=== PATIENT | female | born 1935 | race Caucasian/White ===

== ENCOUNTER → 2016-06-06 | Outpatient (CLI) | payer MEDICARE ==
[2016-06-06 09:34] LABS: ALKALINE PHOSPHATASE 117 U/L (45-117); BILIRUBIN, TOTAL 0.6 mg/dl (0.2-1.0); BUN 18 mg/dl (7-24); CARBON DIOXIDE 31 mmol/L (21-32); CHLORIDE 104 mmol/L (98-107); CHOLESTEROL 203 mg/dL (<200); CPK 91 U/L (26-192); EST GLOM FILT AFRICAN AMERICAN > 60 ml/min; GLUCOSE 112 mg/dL (65-99); HDL CHOLESTEROL 52 mg/dl (40-60); LDL CHOLESTEROL 109 mg/dL (9-159); POTASSIUM 4.1 mmol/L (3.5-5.1); SGOT/AST 66 IU/L (3-35); SGPT/ALT 71 U/L (12-78); SODIUM 145 mmol/L (136-145); TOTAL PROTEIN 8.2 gm/dL (6.4-8.2); TRIGLYCERIDES 211 mg/dl (<150); VLDL CHOLESTEROL 42 mg/dL (6-40)
== END | disposition home or self-care (01) ==
LOC: LAB 08:41
PROVIDERS: Family Medicine
DX: E78.00 Pure hypercholesterolemia, unspecified (principal); E55.9 Vitamin D deficiency, unspecified; I48.91 Unspecified atrial fibrillation

== ENCOUNTER → 2016-12-09 | Outpatient (CLI) | payer MEDICARE | END | disposition home or self-care (01) | LOC: RAD 11:30 | DX: M81.0 Age-related osteoporosis without current pathological fracture (principal) ==

== ENCOUNTER 2016-12-30 12:35 | Inpatient (IN) | payer MEDICARE ==
[~2016-12-30] VITALS: Ht 162.5 cm; Wt 71.4 kg
--- NOTE | ~2016-12-30 | WRIGHTHP ---
[place], [place] PATIENT HISTORY AND PHYSICAL EXAM NAME: ALESIA ZAMORA [facility] #: [id number] UNIT #: [id number] ROOM: [place] [address] DOCTOR: FGIUEROA ANNE MD BIRTHDATE: [birth year] DOS: 12/30/2016 HISTORY OF PRESENT ILLNESS: The patient is 81 years old. The patient is not known to me. This patient lives at home with her , was brought to Dr. Rodriguez's office by her brother because the patient appeared to be confused and that her lips were blue. Apparently, she was not acting right, so Dr. Rodriguez saw her in the office and thought she was hypoxic and sent her to the Emergency Room. This morning, the patient is pleasantly confused, does not remember her name, her 's name or where she lives. She does not remember what happened before she was admitted and she has a very moist sounding cough, and does not remember how long she has had it. PAST MEDICAL HISTORY: Significant for: 1. Chronic atrial fibrillation, history of pacemaker placement. 2. Long-term use of anticoagulants. 3. Benign hypertension. No other history is available. No family members around. MEDICATIONS: Allopurinol 100 daily, atorvastatin 10 daily, Lasix 20 daily, gabapentin 100 b.i.d., levothyroxine 50 mcg daily, metoprolol 50 daily, ReQuip 2 mg at bedtime, warfarin 5 mg daily. SOCIAL HISTORY: She does not smoke, does not use any alcohol. Lives at home with her who also suffers from dementia. She does not have any children. PHYSICAL EXAMINATION: VITAL SIGNS: Graphic trend shows a pressure 110/45, pulse of 70, respirations 14, temperature 98.6. LUNGS: Diminished breath sounds. No wheezes, rales are heard this morning. HEART: Irregular, heart rate in the low 70s. ABDOMEN: Obese, soft, nontender. EXTREMITIES: Without any edema. LABORATORY DATA: Shows WBC count of 6.2, hemoglobin 10.5, hematocrit 34.9. BMP: Glucose 122, BUN 17, creatinine 1.1. Electrolytes were normal except for a potassium of 3.1. Troponin was elevated. CT of the chest shows atelectasis with possible pneumonia on superimposed pneumonia with mild congestive heart failure. ASSESSMENT AND PLAN: 1. Moist sounding cough with a low-grade fever on admission with pneumonia on a CT of the chest. The patient is placed on multiple IV antibiotics. Long cultures were done. 2. Elevated troponin. Troponin continues to go up. It could be related to underlying FL versus demand ischemia. Cardiology consultations obtained. Echocardiogram has been ordered. 3. Hypokalemia. Supplementation is ordered. [place], [place] PATIENT HISTORY AND PHYSICAL EXAM [facility] #[facility] [id number] UNIT #: [id number] ROOM: [place] [address] DOCTOR: FIGUEROA ANNE MD BIRTHDATE: [birth year] 4. Chronic atrial fibrillation, on Coumadin. Protime was therapeutic, but I do not think this patient is an ideal candidate for Coumadin because of her dementia and high risk for fall. We will wait until Cardiology sees her to decide on that. FIGUEROA ANNE MD CM:HISPHYS:PATIENT HISTORY AND PHYSICAL EXAMINATION 5 2 FIGUEROA ANNE MD 12/31/16812 interface
--- NOTE | ~2016-12-30 | PR ---
[place], [place] PROGRESS NOTE NAME: ALESIA ZAMORA [facility] #: [id number] UNIT #: [id number] ROOM: [place] [address] DOCTOR: PATRICIA HERMOSILLO MD BIRTHDATE: [birth year] DOS: 01/02/2017 SUBJECTIVE: The patient is awake, alert, not providing much history. PHYSICAL EXAMINATION: VITAL SIGNS: Blood pressure 131/56, heart rate 70 beats per minute, breathing 17 times per minute, temperature 98 degrees Fahrenheit. GENERAL APPEARANCE: Generalized weakness. HEENT AND NECK: Exam within normal limits. CARDIOVASCULAR SYSTEM: Heart rate is regular in rate and rhythm. S1 and S2 normally audible. LUNGS: Clear to auscultation. ABDOMEN: Soft, nontender. No obvious organomegaly. Bowel sounds are present. EXTREMITIES: Without significant cyanosis or edema. IMPRESSION: 1. The patient with small lingular pneumonia and possible 8-mm lung nodule in the left lower lung. The patient is being treated with antibiotics and I will get a Pulmonary consult. 2. Hypokalemia. Potassium level of 3.2. I will give her extra potassium supplements and repeat potassium levels in the morning. 3. The patient with episode of ventricular tachycardia and elevated troponin level. Dr. Velasquez has consulted high school football coach, Dr. Arroyo to follow and manage. 4. Chronic atrial fibrillation. The patient on Coumadin. The patient now put on apixaban for anticoagulation. 5. Hyperlipidemia, treated with Lipitor. PATRICIA HERMOSILLO MD CM:PNTRANS [id number] PATRICIA HERMOSILLO MD 01/03/17 0019 interface
--- NOTE | ~2016-12-30 | CON ---
[place], [place] REPORT OF CONSULTATION NAME: ALESIA ZAMORA [facility] #: [id number] UNIT #: [id number] ROOM: [place] [address] DOCTOR: CLINT CHIU MD BIRTHDATE: [birth year] DOS: HISTORY OF PRESENT ILLNESS: The patient is known to me. An 81-year-old female with a history of permanent pacemaker. The patient is Dr. Rodriguez's patient. The patient came and saw Dr. Rodriguez and was found to be hypoxic in the Emergency Room. The patient was admitted with a diagnosis of possible pneumonia. The patient has history of chronic atrial fibrillation, permanent pacemaker and long-term use of anticoagulation. The patient has intermittent confusion. The patient is being treated for diastolic heart failure versus pneumonia. She does not look to be in acute distress. The patient examined in the Intensive Care Unit. No chest discomfort. No acute EKG changes suggesting of myocardial injury or infarction. PAST MEDICAL HISTORY: Hypertension, persistent atrial fibrillation, permanent pacemaker, and mcfp use of anticoagulation. MEDICATIONS: Atorvastatin, Lasix, gabapentin, levothyroxine, metoprolol. SOCIAL HISTORY: Does not smoke. Denies any alcohol abuse. REVIEW OF SYSTEMS: CONSTITUTIONAL: No fever, no chills. HEENT: No visual disturbances or hearing problems. CARDIOVASCULAR: As described in HPI. GASTROINTESTINAL: No nausea, no vomiting. GENITOURINARY: No dysuria, hematuria. NEUROLOGIC: Intermittent confusion. No syncope. PHYSICAL EXAMINATION: GENERAL: The patient right now knows her name and place. Does not look to be in acute distress. HEENT: Unremarkable. NECK: Supple, no JVD. LUNGS: Diminished breath sounds. HEART: Sounds are regular and paced. EXTREMITIES: Intact pulses. No edema. NEUROLOGICAL: Appears to be stable. LABORATORY DATA: Shows hemoglobin 10.5, hematocrit 34.9, potassium 3.1, BUN 17, creatinine is 1.0. INR is 2.0. CT of the chest showed nodular density in the lateral aspect of left lower lobe, uncertain mild pulmonary edema. Echocardiogram showed an excellent ejection fraction, no valvular abnormalities, mild to moderate tricuspid regurgitation. IMPRESSION: The patient admitted with respiratory insufficiency, probable diastolic, persistent atrial fibrillation. Mildly elevated troponin, probably type 2 demand as the ejection fraction is well preserved. RECOMMENDATIONS: Continue the anticoagulation as ordered. Monitor the blood pressure and heart rate closely. Mental status is improving. Gentle diuretics [facility] [place], [place] REPORT OF CONSULTATION NAME: ALESIA ZAMORA UNIT #: [id number] ROOM: [place] [address] DOCTOR: CLINT CHIU MD BIRTHDATE: [birth year] as ordered. Continue antibiotics, lipid lowering agents and beta blockers. Interrogate the pacemaker and we will closely follow up. CLINT CHIU MD CM:CONSTR:REPORT OF CONSULTATION 0631 01/02/17 2014 interface
--- NOTE | ~2016-12-30 | DS ---
[place], [place] DISCHARGE SUMMARY NAME: ALESIA ZAMORA UNIT #: [id number] ROOM: [place] [address] DOCTOR: PATRICIA HERMOSILLO MD BIRTHDATE: [birth year] DOS: 01/03/2017 DISCHARGE DIAGNOSES: 1. The patient with small lingular pneumonia and possible 8 mm lung nodule, for which she needs to follow up with Dr. Miguel, the harbor engineer. 2. Hypokalemia, treated with extra potassium supplements. 3. Episode of ventricular tachycardia, evaluated by layout worker, Dr. Arroyo and there was some elevation of troponin level. 4. Chronic atrial fibrillation. The patient anticoagulated with apixaban. 5. Mixed hyperlipidemia. The patient is on Lipitor. HOSPITAL COURSE: 1. The patient was admitted by Dr. Velasquez when she was brought over from Dr. Rodriguez's office for being confused, lips appeared blue and she was not acting right and she was hypoxemic. Dr. Velasquez admitted the patient for exacerbation of COPD and lingular pneumonia. The patient was treated with antibiotics and she appears to have achieved maximum benefit from this admission and is being transferred to nursing facility for continued antibiotics and treatment. 2. Minimal elevation of troponin I level and also an episode of ventricular tachycardia, evaluated by layout worker, Dr. Arroyo and management according to his recommendations. The patient was started on Coreg by Dr. Arroyo. 3. Hypokalemia, treated with extra potassium supplements, potassium levels have normalized. 4. Chronic atrial fibrillation. The patient anticoagulated with apixaban. LABORATORY DATA: Normal serum electrolytes. No leukocytosis. Hemoglobin 11, normal platelets. DISCHARGE MANAGEMENT: Potassium chloride 10 mEq daily, furosemide 40 mg a day, Medrol Dosepak as directed, DuoNeb q.i.d., apixaban 5 mg b.i.d., levothyroxine 50 mcg daily, Lipitor 10 mg a day, Coreg 3.125 mg b.i.d., Levaquin 750 mg every other day orally for 5 doses, then to be stopped. Repeat basic metabolic profile in 1 week. [place], [place] DISCHARGE SUMMARY NAME: ALESIA ZAMORA UNIT #: [id number] ROOM: ICCU-11 DOCTOR: PATRICIA HERMOSILLO MD BIRTHDATE: [birth year] PATRICIA HERMOSILLO MD CM:IRAM [id number] PATRICIA HERMOSILLO MD 01/03/17 2232 interface
[2016-12-30 12:41] VITALS: BP 180/110
[2016-12-30 13:16] VITALS: BP 138/60
[2016-12-30 13:40] LABS: BASO % 0.6 % (0.0-1.0); EOS % 0.1 % (1.0-4.0); HEMATOCRIT 37.5 % (37.0-47.0); HEMOGLOBIN 11.7 g/dl (12.0-16.0); LYMPH # 0.8 10*3/uL (1.3-4.4); LYMPH % 10.5 % (27.0-41.0); MEAN CELL VOLUME 96.4 fl (81.0-99.0); MEAN CORPUSCULAR HGB 30.1 pg (27.0-31.0); MEAN CORPUSCULAR HGB CONC 31.2 g/dl (33.0-37.0); MEAN PLATELET VOLUME 10.5 fl (9.6-12.3); MONO # 1.1 10*3/uL (0.1-1.0); MONO % 15.7 % (3.0-9.0); NEUT # 5.3 10*3/uL (2.3-7.9); NEUT % 72.8 % (47.0-73.0); PLATELET COUNT AUTOMATED 150 10*3/uL (130-400); RED BLOOD COUNT 3.89 10*6/uL (4.10-5.10); RED CELL DISTRI WIDTH 15.6 % (0-14.5); WHITE BLOOD COUNT 7.2 10*3/uL (4.8-10.8)
[2016-12-30 13:51] LABS: ACT PARTIAL THROMBO TIME 26.7 SECONDS (20.8-31.5)
[2016-12-30 14:01] LABS: ALBUMIN 3.4 gm/dl (3.1-4.5); ALKALINE PHOSPHATASE 72 U/L (45-117); BUN 18 mg/dl (7-24); CHLORIDE 105 mmol/L (98-107); CPK 134 U/L (26-192); CREATININE 1.02 mg/dL (0.55-1.02); MAGNESIUM 2.2 mg/dL (1.5-2.1); POTASSIUM 3.2 mmol/L (3.5-5.1); SGOT/AST 29 IU/L (3-35); SGPT/ALT 19 U/L (12-78); SODIUM 142 mmol/L (136-145); TOTAL PROTEIN 7.1 gm/dL (6.4-8.2)
[2016-12-30 14:04] LABS: TROPONIN I 0.046 ng/ml (<0.045)
[2016-12-30 14:33] LABS: BILIRUBIN 1+ (NEGATIVE); BLOOD TRACE-INTACT (NEGATIVE); CLARITY SL CLOUDY (CLEAR); COLOR YELLOW (YELLOW); GLUCOSE NEGATIVE (NEGATIVE); KETONE TRACE (NEGATIVE); LEUKO ESTERASE NEGATIVE (NEGATIVE); NITRITE NEGATIVE (NEGATIVE); PH 5.5 (5.0-9.0); SPECIFIC GRAVITY >= 1.030 (1.005-1.030)
--- NOTE | 2016-12-30 14:42 | NUR ---
STRAIGHT CATH FOR 50CC DARK ABDIEL URINE. TOLERATED WELL.
[2016-12-30 14:48] LABS: MUCOUS 1+; WBC 0-2 wbc/hpf (0-5)
[2016-12-30 15:43] VITALS: BP 195/81
--- NOTE | 2016-12-30 16:00 | NUR ---
PER HUBERT WHEATLEY RN REPORT TAKEN FROM THOMAS RAMIREZ RN. PT CYANOTIC WITH RESPS 32, BP 195/81. DR ANNE INFORMED. NO NEW ORDERS.
--- NOTE | 2016-12-30 16:20 | NUR ---
PT ARRIVED TO FLOOR.
--- NOTE | 2016-12-30 16:23 | NUR ---
MAINTENANCE MACHINE REPAIRER CALLED AND STATED PT WAS IN VTACH. UPON ENTERING THE ROOM PTS LIPS WERE CYANOTIC, RESPS 34, AND PT VERY CONFUSED. RAPID RESPONSE INITIATED.
--- NOTE | 2016-12-30 16:28 | NUR ---
CALLED DR ANNE TO INFORM HER THAT WE HAD TO CALL A RAPID RESPONSE ON PT R/T 3 RUNS OF VTACH, CYANOSIS, ELEVATED BP AND LABORED BREATHING. PER HOSPITALISTS PT IS BEING TRANSFERRED TO THE ICU.
[2016-12-30 16:42] VITALS: BP 174/73
--- NOTE | 2016-12-30 16:42 | NUR ---
A 81, admitted to ICCU, under the services of FIGUEROA Garcia MD with a diagnosis of CHF. Chief complaint is SHORTNESS OF BREATH. Patient arrived via wheel chair from ER. Monitor applied. Initial assessment completed. Vital signs taken and recorded. FIGUEROA GARCIA MD notified of admission to the unit. Orders received. See assessment for past medical history, medications and allergies. Patient and/or family oriented to unit. [facility] ICCU visitation policy reviewed. Clothing/patient valuable form completed. MITCH MCGRATH
--- NOTE | 2016-12-30 16:42 | NUR ---
TRANSFERRED TO ICCU AFTER TRAPID RESPONSE ON 5E, RECTAL TEMP 102.1, MARSHALL PLACED, PT MOANING AND IS VERY RESTLESS
[2016-12-30 16:58] LABS: ABG BASE EXCESS 2.3 mmol/L (-2.0-2.0); ABG HCO3 25.4 mmol/l (22-26); ABG O2 SATURATION 96.8 % (95-97); ARTERIAL BLOOD GAS PCO2 39.1 mmHg (35-45); ARTERIAL BLOOD GAS PH 7.437 (7.35-7.45); ARTERIAL BLOOD GAS PO2 90.7 mmHg (80-90)
--- NOTE | 2016-12-30 18:27 | NUR ---
TAKEN OFF FLOOR FOR CT CHEST
--- NOTE | 2016-12-30 19:00 | NUR ---
DR. SANDOVAL NOTIFIED OF CONSULT. HE IS UNSURE IF HE IS ABLE TO MAKE ROUNDS IN AM.
--- NOTE | 2016-12-30 19:02 | NUR ---
DR. SAUCEDO NOTIFIED OF CONSULT. WILL SEE IN AM.
[2016-12-30 20:00] VITALS: BP 152/50
--- NOTE | 2016-12-30 20:17 | NUR ---
CALLED DOCTOR SAUCEDO WITH CITRICAL TROPONIN OF .070 HE SAID TO TO KEEP WATCHING NO NEW ORDERS AT THIS TIME.
[2016-12-30] MEDS ORDERED: COUMADIN5 M2 PO (20:43)
[2016-12-30] MEDS ORDERED: NEURONTIN100 MG PO (20:44)
[2016-12-30] MEDS ORDERED: Synthroid,Levo50 MCG PO (20:44)
[2016-12-30] MEDS ORDERED: LIPITOR10 MG PO (20:44)
[2016-12-30] MEDS ORDERED: METOPROLOL SUCC50 M1 PO (20:45)
[2016-12-30] MEDS ORDERED: REQUIP2 M2 PO (20:46)
[2016-12-30] MEDS ORDERED: LASIX20 MG PO (20:46)
[2016-12-30] MEDS ORDERED: ZYLOPRIM100 MG PO (20:46)
--- NOTE | 2016-12-30 20:47 | NUR ---
PATIENTS STEPDAUGHTER CALLED IN SHE HELPS TAKE CARE OF HER DAD AND THE PATIENT MUCH POSSIBLE BUT SHE WORKS WEB PRODUCER. STEP DAUGHTER WAS ABLE TO READ ME THE PATIENTS HOME MEDICATIONS FROM THE BOTTLES. MEDS WERE REVIEWED.
[2016-12-30 23:59] VITALS: BP 122/53
--- NOTE | 2016-12-31 02:23 | NUR ---
CALLED DOCTOR SAUCEDO WITH CTRICAL TROPONINS AND INFORMED HIM THAT WAS THE LAST ORDERED I INFORMED HIM THAT PATIENT HAS HAD NO CHEST PAIN. HE SAID THANK YOU I WILL SEE HER IN THE MORNING.
[2016-12-31 04:00] VITALS: BP 110/45
--- NOTE | 2016-12-31 05:39 | NUR ---
PATIENT BEING TRANSFERED TO [facility] IS HERE TO TRANSFER PATIENT. PATIENT IS STABLE AT THIS POINT.
[2016-12-31 05:58] LABS: BASO % 0.5 % (0.0-1.0); EOS # 0.1 10*3/uL (0.0-0.4); EOS % 0.8 % (1.0-4.0); HEMATOCRIT 34.9 % (37.0-47.0); HEMOGLOBIN 10.5 g/dl (12.0-16.0); LYMPH % 15.3 % (27.0-41.0); MEAN CELL VOLUME 98.3 fl (81.0-99.0); MEAN CORPUSCULAR HGB 29.6 pg (27.0-31.0); MEAN CORPUSCULAR HGB CONC 30.1 g/dl (33.0-37.0); MEAN PLATELET VOLUME 11.7 fl (9.6-12.3); MONO # 0.7 10*3/uL (0.1-1.0); MONO % 11.5 % (3.0-9.0); NEUT # 4.4 10*3/uL (2.3-7.9); NEUT % 71.7 % (47.0-73.0); PLATELET COUNT AUTOMATED 140 10*3/uL (130-400); RED BLOOD COUNT 3.55 10*6/uL (4.10-5.10); RED CELL DISTRI WIDTH 15.3 % (0-14.5); WHITE BLOOD COUNT 6.2 10*3/uL (4.8-10.8)
[2016-12-31 06:14] LABS: BUN 17 mg/dl (7-24); CHLORIDE 102 mmol/L (98-107); CREATININE 1.01 mg/dL (0.55-1.02); POTASSIUM 3.1 mmol/L (3.5-5.1); SODIUM 142 mmol/L (136-145)
--- NOTE | 2016-12-31 07:50 | NUR ---
RESTING IN BED. NO VOICED COMPLAINTS. SHORT OF BREATH WITH ANY EXERTION. MOIST COUGH NOTED. RALES HEARD IN RIGHT BASE. NO EDEMA NOTED. MIMI HOSE INTACT TO BILATERAL LOWER LEGS. AFEBRILE. PULSE OX 94% ON 4L NASAL CANNULA.
[2016-12-31 08:00] VITALS: BP 129/63
--- NOTE | 2016-12-31 09:11 | NUR ---
GROUNDMAN/LINEMAN VS. PER NURSE, PT CONFUSED AT TIMES. I HAVE ASKED MAIL CARRIER AND CLERK MAYNOR TO SPEAK WITH FAMILY ABOUT HOME SAFETY AND DC PLAN.
--- NOTE | 2016-12-31 10:34 | NUR ---
Aleksandra is confused and presently in ICU. This web content & social media manager contacted her brother, Js Romero, who is also her MPOA. He indicated that patient resides with her -presently her stepdaughter and stepdaughter's boyfriend are staying with Aleksandra's due to his dementia. sJ is unsure if Aleksandra will be able to return home. He admits that she has been confused-he also stated that she has been having problems ambulating at home. He is agreeable to temporary snf placement. Reviewed list of snf facilties- he requested a referral be made to [facility]-this web content & social media manager made referral-clinicals were faxed-will need Pt and OT evaluations. Will continue to follow.
--- NOTE | 2016-12-31 11:02 | NUR ---
DR. CHIU NOTIFIED OF CONSULT.
[2016-12-31 12:00] VITALS: BP 119/68
--- NOTE | 2016-12-31 12:00 | NUR ---
PHYSICAL THERAPY PAtient with pastoral care at this time. Thank you for this referral. Alberta Urbina,PT
--- NOTE | 2016-12-31 13:46 | NUR ---
PHYSICAL THERAPY PAtient evaluated in ICCU, full evalaution to follow. continue with PT as per plan of care with fall, 02, acute debility and alarm precautions for confusion. PAtient may require SNF for impaired mobility in order to return to home at [facility]. PAtient is moderate complexity via chart review, test and evalaution: 29814. Thank you for this referral. Alberta Urbina,PT
--- NOTE | 2016-12-31 14:11 | NUR ---
[facility]'s snf accepted patient. [facility] completed. Patient will require a 3 day hospital stay. Anticipated discharge , 01/02/17.
[2016-12-31 16:00] VITALS: BP 145/55
[2016-12-31 20:00] VITALS: BP 113/42
--- NOTE | 2016-12-31 20:05 | NUR ---
1949 RESTING IN BED WITH HOB ELEVATED. SIDE RAILS UP X'S 2. CALL LIGHT IN REACH. BED ALARM INTACT. PULSE OX 97% ON 4L. NO DISTRESS NOTED. LIPS REMAIN CYANOTIC IN APPEARANCE, MARSHALL PATENT AND DRAINING STRAW COLORED URINE. DENIES C/O'S PAIN OR DISCOMFORT AT PRESENT TIME.
[2017-01-01] VITALS: BP 122/52
--- NOTE | 2017-01-01 00:14 | NUR ---
RESTING IN BED WITHOUT C/O'S. PULSE OX 96% ON RA.
[2017-01-01 04:00] VITALS: BP 110/64
--- NOTE | 2017-01-01 04:10 | NUR ---
RESTING IN BED WITH EYES CLOSED.APPEARS TO BE SLEEPING.
--- NOTE | 2017-01-01 06:14 | NUR ---
AWAKE. REMAINS PLEASANTLY CONFUSED. HEP LOCK'S INTACT X'S 2 RA. MARSHALL PATENT AND DRAINING PINKINS-ORANGE URINE. 02 INTACT. MOIST COUGH CONT. CONDITION GUARDED.
[2017-01-01 08:00] VITALS: BP 127/56
[2017-01-01 12:00] VITALS: BP 117/66
[2017-01-01 16:00] VITALS: BP 115/58
--- NOTE | 2017-01-01 16:55 | NUR ---
Pt seen in ICCU for ex and therapeutic activities. Pt transferred supine to sidelying to sit with cga x 1 . Pt sat at eob x 5 min with cga/sup x 1. Pt denies pain this date. Pt on 4Lo2 during PT Tx. Pt confused and had difficulty following directions this date. Pt performed the following seated ex x 15 reps each: ap, hip flexion, knee extension, and abduction and standing with GATE GUARD : marching, and heel raises. Pt ambulated 10 ft x 2 with GATE GUARD x 1. Pt placed in gerichair after Tx. Nsg notified of pt in chair and said she did not need a body alarm. Bed tray placed in front of pt with call button. Tolerated Tx without incident. Cont with POC to achieve established PT goals. DMcCloretta, ROOFING SUPERVISOR
[2017-01-01 17:29] LABS: ABG BASE EXCESS 5.2 mmol/L (-2.0-2.0); ABG HCO3 30.3 mmol/l (22-26); ABG O2 SATURATION 95.5 % (95-97); ARTERIAL BLOOD GAS PCO2 47.6 mmHg (35-45); ARTERIAL BLOOD GAS PH 7.417 (7.35-7.45); ARTERIAL BLOOD GAS PO2 66.5 mmHg (80-90)
--- NOTE | 2017-01-01 17:44 | NUR ---
CALLED DR. ANNE WITH ABG RESULTS. INFORMED OF PATIENT BEING VERY DROWSY AND THAT PATIENT WOULD NOT AROUSE TO EAT. NEW ORDERS RECEIVED FOR BIPAP. RESPIRATORY NOTIFIED.
[2017-01-01 20:00] VITALS: BP 168/79
--- NOTE | 2017-01-01 20:19 | NUR ---
194 RESTING IN BED WATCHING TV. HOB ELEVATED. SIDE RAILS UP X'S 2. BIPAP INTACT. PULSE OX 100%. HEP LOCK INTACT RA. PT REMAINS CONFUSED, BUT PLEASANT. MARSHALL PATENT AND DRAINING PINKISH URINE, LIPS ARE CHRONICALLY CYANOTIC IN APPEARANCE. NO DISTRESS NOTED.
--- NOTE | 2017-01-01 22:10 | NUR ---
2109 BIPAP REMOVED. NC PLACED AT 4L. EATING SUPPER.
--- NOTE | 2017-01-01 23:11 | NUR ---
2300 PULSE OX DROPPING IN THE MID 80'S ON NC AT 4L. BIPAP REAPPLIED. PULSE OX UP TO 97%.
[2017-01-02] VITALS (7 sets, daily range): BP systolic 121–150; BP diastolic 46–72
--- NOTE | 2017-01-02 00:41 | NUR ---
RESTING IN BED WITH EYES CLOSED. APPEARS TO BE SLEEPING. BIPAP INTACT. PULSE OX 98%.
--- NOTE | 2017-01-02 04:29 | NUR ---
REMAINS SLEEPTING WITHOUT DISTRESS.
[2017-01-02 06:14] LABS: ALBUMIN 2.5 gm/dl (3.1-4.5); ALKALINE PHOSPHATASE 87 U/L (45-117); BUN 25 mg/dl (7-24); CHLORIDE 104 mmol/L (98-107); POTASSIUM 3.2 mmol/L (3.5-5.1); SGOT/AST 71 IU/L (3-35); SGPT/ALT 43 U/L (12-78); SODIUM 144 mmol/L (136-145); TOTAL PROTEIN 6.4 gm/dL (6.4-8.2)
--- NOTE | 2017-01-02 06:16 | NUR ---
0600 PT AWAKENED FOR AM MEDS. BIPAP LEFT OFF PER REQUEST. WILL CONT TO MONITOR. PULSE OX 94%. URINE IN MARSHALL APPEARS BLOOD TINGED NOW. HEP LOCK INTACT. NO DISTRESS NOTED. MOIST COUGH CONT. CONDITION GUARDED.
[2017-01-02 06:24] LABS: BASO % 0.3 % (0.0-1.0); HEMATOCRIT 35.9 % (37.0-47.0); LYMPH # 0.5 10*3/uL (1.3-4.4); LYMPH % 6.9 % (27.0-41.0); MEAN CELL VOLUME 97.8 fl (81.0-99.0); MEAN CORPUSCULAR HGB CONC 30.6 g/dl (33.0-37.0); MEAN PLATELET VOLUME 11.8 fl (9.6-12.3); MONO # 0.3 10*3/uL (0.1-1.0); MONO % 3.7 % (3.0-9.0); NEUT # 6.2 10*3/uL (2.3-7.9); NEUT % 88.5 % (47.0-73.0); PLATELET COUNT AUTOMATED 165 10*3/uL (130-400); RED BLOOD COUNT 3.67 10*6/uL (4.10-5.10); RED CELL DISTRI WIDTH 14.6 % (0-14.5)
--- NOTE | 2017-01-02 06:27 | NUR ---
DR. CHIU IN TO SEE PT.
--- NOTE | 2017-01-02 07:40 | NUR ---
Shift chart check completed.24 HR chart check completed.
--- NOTE | 2017-01-02 10:44 | NUR ---
On assessment patient alert, able to say her name, but unable to say what building we are in even when given multiple choice. She giggles to the questions. She was able to say Trump the president after given his first name. She's unsure why she is here. Her brother called and gave the Brand of pacemaker, the Model and Serial numbers and that the implanted date 08/18/08. Patient was able to tell me she thought it "might've been changed since then". When the pacemaker rep called he said that the Model number given is no more than two years old. A rep will be here tomorrow (Friday) to interrogate pacemaker. Patient has been bathed, up in chair and fed herself breakfast, took meds without difficulty. Her lips are dark in color at all times. She has a congested cough with lungs wheeze, rhonchi. See all appropriate interventions.
--- NOTE | 2017-01-02 10:58 | NUR ---
PHYSICAL THERAPY Aleksandra seen this AM 1:1 for her therapy session, Pt was up in her bedside chair. Pt a little confused and needing much verebal cueing for everything. Pt on 4 L o2, IV line. Transfer sit/stand with MOD A X 1, up for standing balance once up MIN A X 1, with cueing for balance. Gait forward and back X 3, with MIN/MOD A X 1, with sitting rest. Pt said that she was cold, and end treatment with this, treatment time 17 min, nurse present. CIARAN DANG CASH SHORTAGE INVESTIGATOR.
--- NOTE | 2017-01-02 14:26 | NUR ---
PACEMAKER REP HERE AND INTERROGATED PACEMAKER. [employer]. REPORT PLACED IN CHART. WOUND CARE TO LEFT INNER ARM SKIN TEAR. PULSE OX 98% ON NASAL O2.
--- NOTE | 2017-01-02 19:35 | NUR ---
LORI OOT, NOT NOTIFIED OF CONSULT
--- NOTE | 2017-01-02 22:30 | NUR ---
24 HR chart check completed.
[2017-01-03] VITALS: BP 144/75
[2017-01-03 04:00] VITALS: BP 148/76
[2017-01-03 05:42] LABS: BUN 25 mg/dl (7-24); CHLORIDE 103 mmol/L (98-107); CREATININE 0.91 mg/dL (0.55-1.02); POTASSIUM 3.7 mmol/L (3.5-5.1); SODIUM 144 mmol/L (136-145)
[2017-01-03 07:42] VITALS: BP 165/81
--- NOTE | 2017-01-03 08:00 | NUR ---
Awakened for VS , Bi-pap removed to O2 at 4l NC. Awake ,alert, pleasent .Complete bed bath given pt. assisted w/ face wash , hair comb and teeth brushing. States usually takes denture out at bed time. denture cup and polident provided for this PM. Unable to verify med list as pt. is unaable to remember what she takes. Up to chair for breakfast. gait steady this AM. evolving ecchymosis to left hip noted .
--- NOTE | 2017-01-03 10:24 | NUR ---
PHYSICAL THERAPY Aleksandra seen this AM 1:1 for her physical therapy session. Pt was on her Bi-pap first visit. When i came back Pt up in her bedside chair. Transfer sit/stand and standing balance MIN A X 1, followed by gait balance with gait forward and back, right and left side step X 3, with sitting rest and MIN A X 1, with cueing for everything, Pt is confused. Pt having her o2 on, and IV line, treatment time 24 min. CIARAN DANG RECRUITING MANAGER.
[2017-01-03 11:53] VITALS: BP 105/47
[2017-01-03] MEDS ORDERED: ELIQUIS5 M1 PO (12:30)
[2017-01-03] MEDS ORDERED: CARVEDILOL3.125 MG PO (12:30)
--- NOTE | 2017-01-03 12:48 | NUR ---
and Js CAMILO, notified of discharge. Patient will be admitted to [facility]'s snf. [facility] to transport at 3:00pm
--- NOTE | 2017-01-03 14:05 | NUR ---
PHYSICAL THERAPY CO-SIGN I approve of the Phyical Therapy notes written above. DAVID ALMONTE PT
--- NOTE | 2017-01-03 15:12 | NUR ---
Step [facility] Luis E star here and discharged to [facility] report called . IV dc'd prior to discharge.
== END 2017-01-03 15:12 | disposition other institution (70) | DRG 291 ==
LOC: ED 12:35 → EDHOLD 15:04 → ICCU 15:04 → 5E 15:26 → ICCU 16:32
PROVIDERS: Emergency Medicine; Internal Medicine; ADMIT Internal Medicine
PROC: 5A09457 Assistance with Respiratory Ventilation, 24-96 Consecutive Hours, Continuous Positive Airway Pressure (ICD-10-PCS; principal; 2017-01-02)
DX: I50.33 Acute on chronic diastolic (congestive) heart failure (principal); J96.20 Acute and chronic respiratory failure, unspecified whether with hypoxia or hypercapnia; I47.2 Ventricular tachycardia; J18.9 Pneumonia, unspecified organism; J44.0 Chronic obstructive pulmonary disease with (acute) lower respiratory infection; I48.2 Chronic atrial fibrillation; Z79.01 Long term (current) use of anticoagulants; J44.1 Chronic obstructive pulmonary disease with (acute) exacerbation; I11.0 Hypertensive heart disease with heart failure; R41.0 Disorientation, unspecified; E87.6 Hypokalemia; E78.2 Mixed hyperlipidemia; Z79.899 Other long term (current) drug therapy; Z95.0 Presence of cardiac pacemaker

== ENCOUNTER 2017-10-29 10:22 | Inpatient (IN) | payer MEDICARE ==
[~2017-10-29] VITALS: Ht 157.5 cm; Wt 55.8 kg
--- NOTE | ~2017-10-29 | PR ---
[place], [place] PROGRESS NOTE NAME: ALESIA ZAMORA UNIT #: [id number] ROOM: 504 DOCTOR: ADRIANA SOTO MD BIRTHDATE: [birth year] DOS: 11/06/2017 PULMONARY PROGRESS NOTE SUBJECTIVE: The patient noted comfortable at this time, awake, but noted nonverbal as previously. She has not been noted with any hemodynamic instability. She has not been noted with any respiratory distress. Bronchoscopy was done for the patient as well as thoracentesis was done for the patient in the last 3 days. She appeared to be comfortable this morning on assessment. Review of systems could not be completed. OBJECTIVE: VITAL SIGNS: Normal temperature, respirations 16, heart rate 70, blood pressure 115/64. Pulse ox saturation with Venturi mask was 95% saturation. HEENT: Head was atraumatic. Eyes nonicterus. NECK: Supple. CARDIOVASCULAR: S1, S2 audible. LUNGS: Noted without any wheezing or crackles. Breaths are noted somewhat decreased in the lower portion of the lungs. ABDOMEN: Soft, nontender. EXTREMITIES: Without any acute edema. MUSCULOSKELETAL: Noted without any acute deformities. VISIBLE SKIN: No lesions or rashes. LABORATORY DATA: Culture of the bronchial washing shows moderate growth of yeast. RADIOLOGY: Chest x-ray PA and lateral view that was obtained today was reviewed, shows recurrence of the left pleural effusion. The cytology of pleural fluid from 11/03/2017 noted no bacterial growth. IMPRESSION: The patient has been noted with recurrence of left pleural fluid, which is noted exudative effusion with an area of atelectasis, possibly acute pneumonia, negative cultures. PLAN OF MANAGEMENT: The patient will be reassessed tomorrow for pleural fluid, might require additional thoracentesis. The consent will be obtained from the family members if agreeable. Eliquis will be withhold if the thoracentesis would be agreed upon by the patient's family members. No further need of antibiotic at this time will be necessary. Titrate oxygen supplementation to maintain saturation of oxygen 92% or greater. [place], [place] PROGRESS NOTE NAME: ALESIA ZAMORA UNIT #: [id number] ROOM: 504 DOCTOR: ADRIANA SOTO MD BIRTHDATE: [birth year] ADRIANA SANDOVAL MD CM:PNTRANS 22 ADRIANA SAVAGE MD 11/06/17 1322 interface
--- NOTE | ~2017-10-29 | PR ---
[place], [place] PROGRESS NOTE [id number] UNIT #: [id number] ROOM: 504 DOCTOR: LORI SAVAGE MD,ADRIANA BIRTHDATE: [birth year] DOS: 11/04/2017 PULMONARY PROGRESS NOTE SUBJECTIVE: The patient is noted without any acute new changes at this time. She underwent thoracentesis, about 150 mL of pleural fluid was removed, by the radiologist under ultrasound guidance. The fluid was sent for all the appropriate testing. She has been noted currently n.p.o. past midnight for bronchoscopy. She is noted nonverbal. She is not noted with any acute distress from respiratory standpoint. The patient's anticoagulation was placed on hold for the patient to be started today. OBJECTIVE: VITAL SIGNS: Showed normal temperature, respiratory rate 15-16, heart rate 70-67, blood pressure 122/36 to 156/56. The pulse oxygen saturation on 3 liters nasal cannula was 98% saturation at rest. HEENT: Shows head was atraumatic, eyes nonicterus. LUNGS: Decreased breath sounds noted in the right lower lung. ABDOMEN: Noted soft, nontender. Bowel sounds present. No tenderness. EXTREMITIES: The patient was noted without any acute edema. MUSCULOSKELETAL: Noted without any acute deformities. SKIN: No lesions or rashes. CENTRAL NERVOUS SYSTEM: Could not be performed. The patient does not show any acute focal deficit. LABORATORY DATA: Chest x-ray that was done post-procedure yesterday was noted with improvement in the aeration of the lungs and gradual resolution of pleural fluid without any pneumothorax. The right lobe infiltration of the patient remains unchanged. The pleural fluid analysis for the patient yesterday noted with total WBCs of 1748 with various differentials including 30% neutrophils, 32% lymphocytes, 36% monocytes, and 2% mesothelial cells. The chemistry of the patient noted with glucose 106, total protein of 3.1, LDH 184, cholesterol less than 50, albumin 2.0. Based on the protein criteria and LDH for this patient, the pleural fluid would be considered as an exudative effusion. CBC of the patient this morning, WBC count normal, hemoglobin 10.4, hematocrit 34.5, platelet count 207,000. CMP of the patient this morning, normal BUN and creatinine, glucose 122, CO2 of 38. Blood culture was noted without any bacterial growth for the patient from 10/29/2017. IMPRESSION: 1. The patient with left pleural fluid, status post thoracentesis, exudative effusion with suspected current acute pneumonia. Other etiology of the patient's current infiltration in the pleural fluids would be considered. 2. The patient with nonverbal status as well. 3. History of dementia. 4. N.p.o. for bronchoscopy. PLAN OF TREATMENT: Proceed with bronchoscopy as planned. No change in antibiotics and plan of management. Monitor cytology of the pleural fluid. Other supportive therapy and plan of management for the patient to be continued [place], [place] PROGRESS NOTE NAME: ALESIA ZAMORA UNIT #: [id number] ROOM: [facility] DOCTOR: LORI SAVAGE MD,ADRIANA BIRTHDATE: [birth year] as previously in progress without any other changes. Usual care, other supportive therapy, plan of management and care plan. ADRIANA SANDOVAL MD CM:PNTRANS [id number] [id number] ADRIANA SVAAGE MD 11/04/17 1155 interface
--- NOTE | ~2017-10-29 | PR ---
[place], [place] PROGRESS NOTE NAME: ALESIA ZAMORA UNIT #: [id number] ROOM: 504 DOCTOR: LORI SAVAGE MD,ADRIANA BIRTHDATE: [birth year] DOS: 11/08/2017 SUBJECTIVE: The patient was noted fully awake and alert and able to speak few words first time since I have seen the patient. She was not noted with any acute distress, getting oxygen supplementation nasal cannula. OBJECTIVE: VITAL SIGNS: Normal temperature, respiratory rate 18, heart rate 80, blood pressure 100/51, pulse ox saturation on 2 liters nasal cannula 94% saturation. HEENT: Head was atraumatic. Eyes nonicterus. NECK: Supple. CARDIOVASCULAR: S1, S2 is audible. LUNGS: The patient was noted without any wheezing or crackles. Decreased breath sounds on the patient's left lower lung. IMPRESSION: The patient has stable respiratory status with pleural fluid, previously treated acute pneumonia, thoracentesis recurrence of pleural fluid on the left side. PLAN OF MANAGEMENT: The patient has been ordered hospice consultation. At this time, no change in treatment needs to be done. Continue other previous therapy, plan of management as in progress. Usual care, other supportive plan of treatment. ADRIANA SANDOVAL MD CM:PNTRANS [id number] ADRIANA SAVAGE MD 11/09/17 0011 interface
--- NOTE | ~2017-10-29 | PR ---
[place], [place] PROGRESS NOTE NAME: ALESIA ZAMORA UNIT #: [id number] ROOM: 504 DOCTOR: LORI SAVAGE MD,ADRIANA BIRTHDATE: [birth year] DOS: 11/11/2017 SUBJECTIVE: She has been noted comfortable at this time without any acute distress, resting comfortably, noted awake. The patient follows vocal commands. She has not been noted any respiratory difficulty. OBJECTIVE: VITAL SIGNS: Show normal temperature, respiratory rate 18, heart rate 73, blood pressure 124/50. The pulse oxygen saturation 3 liters 99% saturation. HEAD, EYES, EARS, NOSE, AND THROAT: Examination shows head was atraumatic. Eyes: No icterus. NECK: Supple. CARDIOVASCULAR: S1, S2 is audible. LUNGS: Noted without any wheeze or crackles. Breaths are noted decreased in the left lower lung. ABDOMEN: Soft, flat, nontender. EXTREMITIES: No acute edema. IMPRESSION: Stable respiratory status, acute pneumonia, left pleural fluid or debility, which are noted advanced. PLAN OF TREATMENT: Physical therapy, plan of management. Continue the current plan of therapy, physical therapy, occupation therapy and other medical management. Supportive care, plan of management noted as in progress. Usual care with addition of treatment changes to be made based on the progression of the illness. ADRIANA SANDOVAL MD CM:PNTRANS [id number] [id number] ADRIANA SAVAGE MD 11/11/17 1017 interface
--- NOTE | ~2017-10-29 | PR ---
[place], [place] PROGRESS NOTE [id number] UNIT #: [id number] ROOM: 504 DOCTOR: LORI SAVAGE MD,ADRIANA BIRTHDATE: [birth year] DOS: 11/05/2017 SUBJECTIVE: The patient has been noted comfortable at this time without acute distress. The patient resting in the bed. Eating breakfast with the help of nursing aid. Patient not complaining of respiratory distress. The patient with no acute distress noted. OBJECTIVE: VITAL SIGNS: Showed normal temperature, respiratory rate 18, heart rate 80, blood pressure 158/64. Pulse oxygen saturation of the patient on 6 liters nasal cannula then filter face mask is noted 98% saturation. HEENT: Head was atraumatic. Eye nonicterus. NECK: Supple. CARDIOVASCULAR: S1, S2 audible. LUNGS: The patient was noted with decreased breath sounds in the left lung. Crackles also present. ABDOMEN: Soft, nontender. Bowel sounds present. EXTREMITIES: No acute edema. LABORATORY DATA: Gram stain of the bronchial washing of yesterday noted has moderate white blood cells, moderate epithelial cells, moderate budding yeast. Culture noted moderate growth of yeast. Findings are pending. Lab results for this morning are glucose 54, creatinine 9.9. IMPRESSION: The patient with respiratory failure with increased oxygen requirement with exudative pleural fluid left side as well as acute pneumonia. The patient is also noted with compression atelectasis treated with an antibiotic empirically, bronchodilators and oxygen supplementation. PLAN OF MANAGEMENT: No changes in the plan of care. Monitor respiratory status. Continue to monitor progression of the current abnormality including the lung. Other supportive therapy, plan of management. ADRIANA SANDOVAL MD CM:PNTRANS 1409 [id number] ADRIANA SAVAGE MD 11/06/17 1347 interface
--- NOTE | ~2017-10-29 | PROC NOTE ---
[place], [place] PROCEDURE NOTE NAME: ALESIA ZAMORA UNIT #: [id number] ROOM: [facility] DOCTOR: LORI SAVAGE MD,ADRIANA BIRTHDATE: [birth year] DOS: 11/04/2017 BRONCHOSCOPY NOTE PREOPERATIVE DIAGNOSES: The patient with a left lower lobe infiltration, suspected pneumonia, rule out other etiology. POSTOPERATIVE DIAGNOSES: The patient with a left lower lobe infiltration, suspected pneumonia, rule out other etiology. PROCEDURE DESCRIPTION: Informed consent obtained from other family members. She was brought to the OR and placed in supine position. Conscious sedation administered by the Anesthesia Department. After achieving proper sedation, airway introduced into the mouth. Bronchoscope was advanced to the airway into laryngeal area. Epiglottis and vocal cords were seen. Bronchoscope was advanced to vocal cord and tracheal lumen. The tracheal lumen noted with small amount of secretion for this patient. Juju noted sharp. Right upper, right middle, right lower lobe opening was noted clearly. The bronchial opening was noted without any secretion. Left lower lobe bronchi were noted with small bilirubin secretion present in the left lower lobe endobronchial subsegment. The remaining endobronchial tree was noted clear. The bronchial washing was taken from the left lower lobe endobronchial tree without difficulty. Small secretions was also clear endobronchial tree bilaterally as well including right and left main stem bronchi. The procedure was well tolerated by the patient without any difficulty. Postoperative findings will be discussed with the patient's family members. No change in treatment will be necessary. ADRIANA SANDOVAL MD CM:PROCNOTE:PROCEDURE NOTE [id number] [id number] ADRIANA SAVAGE MD
--- NOTE | ~2017-10-29 | PR ---
[place], [place] PROGRESS NOTE NAME: ALESIA ZAMORA UNIT #: [id number] ROOM: 504 DOCTOR: LORI SAVAGE MD,ADRIANA BIRTHDATE: [birth year] DOS: 11/10/2017 PULMONARY PROGRESS NOTE SUBJECTIVE: The patient has been noted comfortable at this time, awake and alert. The patient at this time is without any acute distress this morning of assessment. Currently, comfortably resting this morning on her bed. PHYSICAL EXAMINATION: VITAL SIGNS: Normal temperature, respiratory rate of 20, heart rate of 74, and blood pressure of 105/42. Pulse oxygen saturation on 2 liters nasal cannula is 98% saturation. HEENT: Examination shows head was atraumatic. Eyes, nonicterus. NECK: Supple. CARDIOVASCULAR SYSTEM: S1, S2 audible. LUNGS: The patient was noted without any wheezing or crackles at the present time. The breaths are noted decreased in the left lower lung as previously. ABDOMEN: Soft, nontender. EXTREMITIES: Without any acute edema. IMPRESSION: The patient has stable respiratory status, left pleural fluid, already treated for acute pneumonia. Overall debility, which was noted as advanced. PLAN OF MANAGEMENT: No changes from the pulmonary standpoint in the care. The patient has been currently assessed with the hospice evaluation. In the meantime, continue current plan of therapy without any changes to be done. ADRIANA SANDOVAL MD CM:PNTRANS [id number] ADRIANA SAVAGE MD 11/11/17 0119 interface
--- NOTE | ~2017-10-29 | EKG ---
[place], [place] ELECTROCARDIOGRAM REPORT NAME: ALESIA ZAMORA UNIT #: [id number] ROOM: [facility] DOCTOR: LORI SAVAGE MD,ADRIANA BIRTHDATE: [birth year] DOS: 11/03/2017 ELECTROCARDIOGRAM TIME: 09:37 a.m. The electrocardiogram patient shows atrial fibrillation and atrial flutter for the patient with ventricular beats, rather ventricular paced beats. Heart rate noted 70 beats per minute. ADRIANA SANDOVAL MD CM:EKGRPT:ELECTROCARDIOGRAM REPORT [id number] ADRIANA SAVAGE MD
--- NOTE | ~2017-10-29 | PR ---
[place], [place] PROGRESS NOTE NAME: ALESIA ZAMORA UNIT #: [id number] ROOM: 504 DOCTOR: ADRIANA SOTO MD BIRTHDATE: [birth year] DOS: 11/07/2017 SUBJECTIVE: The patient noted comfortable at this time, resting on the bed without any acute distress. She has been noted comfortable as well. Not reported any acute distress. The patient noted nonverbal. She was planned for thoracentesis to be done today. Review of systems could not be obtained because of the patient's current history of dementia. OBJECTIVE: VITAL SIGNS: Normal temperature, respiratory rate 12, heart rate 82, blood pressure is 111/59. Pulse ox saturation on 2 liters 97% saturation. HEENT: Head was atraumatic. Eye nonicterus. NECK: Supple. CARDIOVASCULAR: S1, S2 is audible. LUNGS: Decreased breath sound in the left lower lung. ABDOMEN: Soft, nontender. Bowel sounds present. EXTREMITIES: Without any acute edema. SKIN: No lesions or rashes. MUSCULOSKELETAL: Noted without any acute deformities. CENTRAL NERVOUS SYSTEM: Without any acute deficit. Examination could not be clearly performed with current nonverbal status. IMPRESSION: Recurrent left pleural fluid was noted, which has exudative in nature. Previously, treated for acute pneumonia as well as fluid noted, continue to increase, confirmed with the ultrasound. Acute chronic anticoagulation, placed in for thoracentesis. PLAN OF MANAGEMENT: The patient has been planned for possibly to hospice care discussed with primary care attending physician. Discussion with family members will be started. Based on that, I will not do thoracentesis. At this time, it would not be necessary since the patient is in acute distress at this time. Comfort measures to be instituted and hospice care would be appropriate. The patient has overall multiple medical problems, history of dementia and other, the patient does want to proceed with thoracentesis, certainly could be done in the next 24 hours. [place], [place] PROGRESS NOTE NAME: ALESIA ZAMORA UNIT #: [id number] ROOM: 504 DOCTOR: ADRIANA SOTO MD BIRTHDATE: [birth year] ADRIANA SANDOVAL MD CM:PNTRANS 1320 ADRIANA SAVAGE MD 11/08/17 0142 interface
--- NOTE | ~2017-10-29 | CON ---
[place], [place] REPORT OF CONSULTATION NAME: ALESIA ZAMORA [facility] #: [id number] UNIT #: [id number] ROOM: 504 DOCTOR: ADRIANA SOTO MD BIRTHDATE: [birth year] DOS: 11/03/2017 PULMONARY CONSULTATION, EVALUATION, AND MANAGEMENT REQUESTING PHYSICIAN: Hospitalist Service. REASON FOR CONSULTATION: Assessment of the current respiratory symptoms including the pleural fluid and the pneumonia. HISTORY OF PRESENT ILLNESS: This is an 82-year-old white female who has been admitted to the hospital on 10/29/2017 under the hospitalist services. The patient unable to give me any history, does not have any verbal communication with the patient, but noted awake and alert, without any distress at this time on the assessment. History contained in the document is actually from review of the medical record of the patient which were done by the other physicians on this current hospitalization. This is an 82-year-old white female patient who has been brought to the hospital. The patient has been noted with change in mental status and increased lethargy in the assisted living facility. The patient has been noted pleasant with confusion at that time on admission. She was reported with symptoms of dizziness and diplopia. The patient has been admitted to the hospital and further assessment was continued and the CT scan of the chest that was completed for the patient on 11/02/2017 was reported with findings of acute pneumonia with pleural fluid and infiltration involving the left lower lung. REVIEW OF SYSTEMS: Cannot be performed since the patient does not have any verbal communication this morning. This is most likely related to the Alzheimer dementia and other change in mental status. PAST MEDICAL HISTORY: Reported as: 1. History of combined systolic and diastolic congestive heart failure. 2. Alzheimer dementia. 3. Depression. 4. Essential hypertension. 5. Gastroesophageal reflux. 6. Gout. 7. Hypercholesterolemia. 8. Hypercoagulable status, details unknown. 9. History of restless leg syndrome reported. 10. Neuropathy was also reported. PAST SURGICAL HISTORY: AICD insertion/pacemaker insertion. SOCIAL HISTORY: Unknown. Currently resident of assisted living facility. FAMILY HISTORY: Unknown. MEDICATIONS: Medications of the patient from the assisted living facility were noted as use of: Zyloprim, Augmentin, Eliquis, atorvastatin, Coreg, Lasix, gabapentin, DuoNeb, levothyroxine, Namenda, omeprazole, Risperdal, rivastigmine [place], [place] REPORT OF CONSULTATION NAME: [facility] [id number] UNIT #: [id number] ROOM: [facility] DOCTOR: ADRIANA SOTO MD BIRTHDATE: [birth year] patch, Requip, sennoside, and sertraline. ALLERGIES: Noted with no known drug allergies. PHYSICAL EXAMINATION: GENERAL: This is an 82-year-old female patient who has been currently lying comfortably on the bed without any acute distress, nonverbal, does not answer any questions. Height of the patient recorded as 5 feet 2 inches, weight of 130 pounds, BMI 23. VITAL SIGNS: Normal temperature of the patient since admission, respiratory rate of 16-18, heart rate of 70-68, blood pressure 104/46-103/67. Pulse oxygen saturation of the patient noted on 2 liters nasal cannula 98% saturation. Pulse ox saturation on admission was noted 98% as well. HEENT: Limited examination. Head was atraumatic. Eyes nonicterus. Oral mucosa moist. CARDIOVASCULAR: S1, S2 audible. LUNGS: Noted with absent breath sounds noted in the left lower lung. Scattered crackles of the lung were noted in the left mid and lower lung. There was no wheezing. ABDOMEN: Soft, nontender, flat. EXTREMITIES: Noted without any acute edema. MUSCULOSKELETAL: Noted without any acute deformities. CENTRAL NERVOUS SYSTEM: No apparent focal deficit. The patient moving all the upper and lower extremities. LABORATORY DATA: CBC from 10/27/2017, hemoglobin 9.3, hematocrit 30.8, platelet count 200,000. Lactic acid 0.8. The PT, PTT of the patient on 10/27/2017, INR 1.3, PTT normal. CMP of the patient from 10/27/2017 noted normal BUN and creatinine, glucose normal. Potassium 2.9, sodium 146. CBC on 10/29/2017 was noted essentially same as previously on admission. The CBC of the patient that was done this morning remains essentially identical for the patient almost as noted on admission with normal WBC count and platelet and mild anemia of the patient with hemoglobin 10.3. BMP this morning, normal BUN and creatinine noted, CO2 39. RADIOLOGY DATA: Chest x-ray of the patient that was done on 10/29/2017 shows evidence of pleural fluid noted with area of compression atelectasis as well. Chest x-ray of patient on 10/30/2017 was showing finding of congestive heart failure with increase of pleural fluid. Chest x-ray of 10/31/2017 was showing similar finding with mild pulmonary venous congestion. CT scan of the chest that was done without contrast on 11/02/2017 shows area of compression atelectasis and evidence of pleural fluid noted in the left side, possible moderate in size. Right lung appeared to be clear. Increased interstitial marking noted in the left lower lung area. Calcification of the airways of the patient noted with normal aging process ____ poorly seen. IMPRESSION: 1. The patient who has been currently admitted to the hospital noted with persistent respiratory symptoms with the pleural fluid, congestive heart failure, possibility of acute pneumonia versus compression atelectasis has been [place], [place] REPORT OF CONSULTATION NAME: ALESIA ZAMORA UNIT #: [id number] ROOM: 504 DOCTOR: ADRIANA SOTO MD BIRTHDATE: [birth year] considered. 2. History of chronic Alzheimer dementia. 3. Resident of the assisted living facility. 4. History of congestive heart failure with combined systolic and diastolic dysfunction, possibility of acute component would be considered. The echocardiogram of the patient that was done in December of 2016, results were reviewed and noted with left ventricle ejection fraction reported 60%. Moderate tricuspid regurgitation noted with elevation of pulmonary artery pressures. Other past medical problems noted in the history was noted with several others. PLAN OF MANAGEMENT: The patient is getting oral Lasix that will be continued as a diuretic. Monitor pleural fluid. Hold off the Eliquis for this patient and plan for thoracentesis on the left side to be done by the Radiology services. The bronchoscopy planned to be done tomorrow morning for further assessment. Continuation of current oral Augmentin of the patient, which has been given to this patient, seems like from admission at this time. She does not show any signs of acute [place]id pneumonia. Other supportive therapy, plan of management care plan with additional change in treatment recommended based on progression of the illness. The consent will be obtained from the patient's power of distribution coordinator since the patient not able to give consent for her own procedure or other because of history of dementia. ADRIANA SANDOVAL MD CM:CONSTR:REPORT OF CONSULTATION 1120 11/04/17 0122 interface
--- NOTE | ~2017-10-29 | PR ---
[place], [place] PROGRESS NOTE NAME: ALESIA ZAMORA UNIT #: [id number] ROOM: 504 DOCTOR: LORI SAVAGE MD,ADRIANA BIRTHDATE: [birth year] DOS: 11/09/2017 PULMONARY PROGRESS NOTE SUBJECTIVE: The patient noted comfortable at this time without any distress. Remains awake and alert. She has not been noted any new respiratory change at this time. She has not been noted any symptoms of shortness of breath or coughing. OBJECTIVE: VITAL SIGNS: Blood pressure normal as 116/49, respiratory rate of 16, heart rate 77, temperature normal. Pulse ox saturation on 2 liters nasal cannula was noted as 94% as well. HEENT: Examination shows head was atraumatic. Eyes nonicterus. NECK: Supple. CARDIOVASCULAR: S1, S2 audible. LUNGS: Without any wheezing or crackles. Decreased breath sounds in the left lower lung as previously noted. ABDOMEN: Soft, nontender. Bowel sounds present. IMPRESSION: 1. The patient has stable respiratory status. The patient with the pleural fluid, left side, acute pneumonia, already treated with overall generalized debility and illnesses. 2. History of Alzheimer's dementia. PLAN OF MANAGEMENT: No changes in the plan of management of the patient at this time. The hospice consultation has been already noted in progress. At this time, no change in treatment will be necessary. ADRIANA SANDOVAL MD CM:PNTRANS [id number] ADRIANA SAVAGE MD 11/18/17 0831 interface
[~2017-10-29 10:22] MED LIST: CARVEDILOL3.125 MG PO; COUMADIN5 M2 PO; ELIQUIS5 M1 PO; LASIX20 MG PO; LIPITOR10 MG PO; METOPROLOL SUCC50 M1 PO; NAMENDA5 M1 PO; NEURONTIN100 MG PO; OMEPRAZOLE20 M2 PO; REQUIP2 M2 PO; RISPERDAL0.5 MG PO; RISPERIDONE1 MG PO; RIVASTIGMINE TAR6 M1 PO; Synthroid,Levo50 MCG PO; ZOLOFT25 MG PO; ZYLOPRIM100 MG PO
[2017-10-29 10:23] VITALS: BP 138/55
[2017-10-29] MEDS ORDERED: SENNA8.6 MG PO (10:35)
[2017-10-29 11:47] LABS: BASO # 0.1 10*3/uL (0.0-0.1); BASO % 0.8 % (0.0-1.0); EOS # 0.2 10*3/uL (0.0-0.4); EOS % 2.1 % (1.0-4.0); HEMATOCRIT 34.8 % (37.0-47.0); HEMOGLOBIN 10.3 g/dl (12.0-16.0); LYMPH % 13.7 % (27.0-41.0); MEAN CELL VOLUME 100.9 fl (81.0-99.0); MEAN CORPUSCULAR HGB 29.9 pg (27.0-31.0); MEAN CORPUSCULAR HGB CONC 29.6 g/dl (33.0-37.0); MEAN PLATELET VOLUME 10.9 fl (9.6-12.3); MONO # 0.7 10*3/uL (0.1-1.0); MONO % 10.1 % (3.0-9.0); NEUT # 5.3 10*3/uL (2.3-7.9); PLATELET COUNT AUTOMATED 211 10*3/uL (130-400); RED BLOOD COUNT 3.45 10*6/uL (4.10-5.10); WHITE BLOOD COUNT 7.3 10*3/uL (4.8-10.8)
[2017-10-29 11:53] LABS: BILIRUBIN 1+ (NEGATIVE); BLOOD TRACE-LYSED (NEGATIVE); CLARITY CLOUDY (CLEAR); COLOR YELLOW (YELLOW); GLUCOSE NEGATIVE (NEGATIVE); KETONE NEGATIVE (NEGATIVE); LEUKO ESTERASE NEGATIVE (NEGATIVE); NITRITE NEGATIVE (NEGATIVE); SPECIFIC GRAVITY 1.025 (1.005-1.030)
[2017-10-29 12:05] LABS: ALBUMIN 3.3 gm/dl (3.1-4.5); ALKALINE PHOSPHATASE 68 U/L (45-117); BUN 7 mg/dl (7-24); CHLORIDE 99 mmol/L (98-107); CREATININE 0.76 mg/dL (0.55-1.02); POTASSIUM 3.2 mmol/L (3.5-5.1); SGOT/AST 18 IU/L (3-35); SGPT/ALT 10 U/L (12-78); SODIUM 144 mmol/L (136-145); TROPONIN I < 0.015 ng/ml (<0.045)
[2017-10-29 12:08] VITALS: BP 130/60
[2017-10-29 12:22] LABS: BACTERIA 2+; EPITHELIAL CELLS 20-30; MUCOUS 2+
[2017-10-29 12:45] VITALS: BP 139/63
[2017-10-29] MEDS ORDERED: AUGMENTIN 875-875 MG PO (13:56)
[2017-10-29] MEDS ORDERED: DUONEB 3 MG/3 ML3 M1 INH (13:57)
[2017-10-29] MEDS ORDERED: RISPERIDONE1 MG PO (13:58)
[2017-10-29 20:00] VITALS: BP 82/33
[2017-10-30] VITALS: BP 11/55
[2017-10-30 00:23] VITALS: BP 100/55
[2017-10-30 07:01] LABS: BASO # 0.1 10*3/uL (0.0-0.1); BASO % 0.9 % (0.0-1.0); EOS # 0.2 10*3/uL (0.0-0.4); HEMATOCRIT 29.7 % (37.0-47.0); HEMOGLOBIN 8.8 g/dl (12.0-16.0); LYMPH # 0.8 10*3/uL (1.3-4.4); LYMPH % 15.4 % (27.0-41.0); MEAN CORPUSCULAR HGB 29.9 pg (27.0-31.0); MEAN CORPUSCULAR HGB CONC 29.6 g/dl (33.0-37.0); MEAN PLATELET VOLUME 11.3 fl (9.6-12.3); MONO # 0.7 10*3/uL (0.1-1.0); MONO % 12.4 % (3.0-9.0); NEUT # 3.6 10*3/uL (2.3-7.9); NEUT % 67.9 % (47.0-73.0); PLATELET COUNT AUTOMATED 188 10*3/uL (130-400); RED BLOOD COUNT 2.94 10*6/uL (4.10-5.10); RED CELL DISTRI WIDTH 14.7 % (0-14.5); WHITE BLOOD COUNT 5.3 10*3/uL (4.8-10.8)
[2017-10-30 07:18] LABS: ALBUMIN 2.7 gm/dl (3.1-4.5); ALKALINE PHOSPHATASE 58 U/L (45-117); BUN 6 mg/dl (7-24); CHLORIDE 99 mmol/L (98-107); CREATININE 0.55 mg/dL (0.55-1.02); POTASSIUM 3.2 mmol/L (3.5-5.1); SGOT/AST 11 IU/L (3-35); SGPT/ALT 8 U/L (12-78); SODIUM 143 mmol/L (136-145); TOTAL PROTEIN 6.1 gm/dL (6.4-8.2)
[2017-10-30 07:25] LABS: THYROID STIM HORMONE (HS) 0.524 uIU/ml (0.358-4.75)
[2017-10-30 08:00] VITALS: BP 144/53
[2017-10-30 10:05] LABS: VITAMIN D, 25-HYDROXY 20.9 ng/mL (30-100)
[2017-10-30 12:00] VITALS: BP 110/48
[2017-10-30 16:00] VITALS: BP 115/54
[2017-10-30 20:00] VITALS: BP 137/60
[2017-10-31] VITALS: BP 138/52
[2017-10-31 06:31] LABS: BASO # 0.1 10*3/uL (0.0-0.1); BASO % 1.1 % (0.0-1.0); EOS # 0.2 10*3/uL (0.0-0.4); EOS % 3.1 % (1.0-4.0); HEMATOCRIT 34.6 % (37.0-47.0); LYMPH # 0.7 10*3/uL (1.3-4.4); LYMPH % 13.3 % (27.0-41.0); MEAN CELL VOLUME 101.8 fl (81.0-99.0); MEAN CORPUSCULAR HGB 29.4 pg (27.0-31.0); MEAN CORPUSCULAR HGB CONC 28.9 g/dl (33.0-37.0); MEAN PLATELET VOLUME 11.1 fl (9.6-12.3); MONO # 0.6 10*3/uL (0.1-1.0); MONO % 10.4 % (3.0-9.0); NEUT % 71.9 % (47.0-73.0); PLATELET COUNT AUTOMATED 198 10*3/uL (130-400); RED CELL DISTRI WIDTH 14.6 % (0-14.5); WHITE BLOOD COUNT 5.5 10*3/uL (4.8-10.8)
[2017-10-31 06:56] LABS: BUN 6 mg/dl (7-24); CHLORIDE 101 mmol/L (98-107); CREATININE 0.74 mg/dL (0.55-1.02); POTASSIUM 3.9 mmol/L (3.5-5.1); SODIUM 145 mmol/L (136-145)
[2017-10-31 08:00] VITALS: BP 157/55
[2017-10-31 12:00] VITALS: BP 96/40
[2017-10-31 16:00] VITALS: BP 144/54
[2017-10-31 20:00] VITALS: BP 119/53
[2017-11-01] VITALS: BP 153/53
[2017-11-01 08:00] VITALS: BP 154/47
[2017-11-01 12:00] VITALS: BP 92/50
[2017-11-01 16:00] VITALS: BP 120/40
[2017-11-01 20:00] VITALS: BP 116/45
[2017-11-02] VITALS: BP 112/47
[2017-11-02 08:00] VITALS: BP 103/67
[2017-11-02 11:02] LABS: BASO # 0.1 10*3/uL (0.0-0.1); BASO % 0.9 % (0.0-1.0); EOS # 0.2 10*3/uL (0.0-0.4); EOS % 1.8 % (1.0-4.0); HEMATOCRIT 34.4 % (37.0-47.0); HEMOGLOBIN 10.3 g/dl (12.0-16.0); LYMPH # 1.1 10*3/uL (1.3-4.4); MEAN CELL VOLUME 99.7 fl (81.0-99.0); MEAN CORPUSCULAR HGB 29.9 pg (27.0-31.0); MEAN CORPUSCULAR HGB CONC 29.9 g/dl (33.0-37.0); MEAN PLATELET VOLUME 10.8 fl (9.6-12.3); MONO # 0.7 10*3/uL (0.1-1.0); MONO % 8.7 % (3.0-9.0); NEUT # 6.1 10*3/uL (2.3-7.9); NEUT % 75.2 % (47.0-73.0); PLATELET COUNT AUTOMATED 204 10*3/uL (130-400); RED BLOOD COUNT 3.45 10*6/uL (4.10-5.10); RED CELL DISTRI WIDTH 14.6 % (0-14.5); WHITE BLOOD COUNT 8.1 10*3/uL (4.8-10.8)
[2017-11-02 11:18] LABS: ALBUMIN 2.9 gm/dl (3.1-4.5); ALKALINE PHOSPHATASE 62 U/L (45-117); BUN 7 mg/dl (7-24); CHLORIDE 99 mmol/L (98-107); CREATININE 0.78 mg/dL (0.55-1.02); POTASSIUM 4.1 mmol/L (3.5-5.1); SGOT/AST 14 IU/L (3-35); SGPT/ALT 11 U/L (12-78); SODIUM 145 mmol/L (136-145); TOTAL PROTEIN 6.5 gm/dL (6.4-8.2)
[2017-11-02 12:00] VITALS: BP 104/41
[2017-11-02 16:00] VITALS: BP 104/46
[2017-11-02 20:00] VITALS: BP 102/51
[2017-11-03] VITALS: BP 127/52
[2017-11-03 06:13] LABS: BASO # 0.1 10*3/uL (0.0-0.1); BASO % 0.8 % (0.0-1.0); EOS # 0.3 10*3/uL (0.0-0.4); HEMATOCRIT 34.8 % (37.0-47.0); HEMOGLOBIN 10.3 g/dl (12.0-16.0); LYMPH # 1.2 10*3/uL (1.3-4.4); LYMPH % 13.7 % (27.0-41.0); MEAN CELL VOLUME 99.4 fl (81.0-99.0); MEAN CORPUSCULAR HGB 29.4 pg (27.0-31.0); MEAN CORPUSCULAR HGB CONC 29.6 g/dl (33.0-37.0); MEAN PLATELET VOLUME 11.1 fl (9.6-12.3); MONO # 0.7 10*3/uL (0.1-1.0); MONO % 8.6 % (3.0-9.0); NEUT # 6.2 10*3/uL (2.3-7.9); NEUT % 73.4 % (47.0-73.0); PLATELET COUNT AUTOMATED 194 10*3/uL (130-400); RED CELL DISTRI WIDTH 14.6 % (0-14.5); WHITE BLOOD COUNT 8.5 10*3/uL (4.8-10.8)
[2017-11-03 06:39] LABS: BUN 10 mg/dl (7-24); CHLORIDE 100 mmol/L (98-107); CREATININE 0.77 mg/dL (0.55-1.02); POTASSIUM 3.6 mmol/L (3.5-5.1); SODIUM 143 mmol/L (136-145)
[2017-11-03 08:00] VITALS: BP 132/43
[2017-11-03 12:00] VITALS: BP 113/58
[2017-11-03 14:59] VITALS: BP 127/49
[2017-11-03 16:00] VITALS: BP 124/43
[2017-11-03 19:06] LABS: BODY FLUID WBC 1748 /uL
[2017-11-03 19:54] LABS: BF LYMPHOCYTES 32 %; BF MESOTHELIALS 2 %; BF MONOCYTES 36 %; BF NEUTROPHILS 30 %
[2017-11-03 20:00] VITALS: BP 118/49
[2017-11-04] VITALS (8 sets, daily range): BP systolic 100–167; BP diastolic 36–70
[2017-11-04 06:32] LABS: BASO # 0.1 10*3/uL (0.0-0.1); BASO % 0.8 % (0.0-1.0); EOS # 0.2 10*3/uL (0.0-0.4); EOS % 2.5 % (1.0-4.0); HEMATOCRIT 34.5 % (37.0-47.0); HEMOGLOBIN 10.4 g/dl (12.0-16.0); LYMPH # 1.1 10*3/uL (1.3-4.4); LYMPH % 12.5 % (27.0-41.0); MEAN CELL VOLUME 98.6 fl (81.0-99.0); MEAN CORPUSCULAR HGB 29.7 pg (27.0-31.0); MEAN CORPUSCULAR HGB CONC 30.1 g/dl (33.0-37.0); MEAN PLATELET VOLUME 11.4 fl (9.6-12.3); MONO # 0.9 10*3/uL (0.1-1.0); MONO % 9.4 % (3.0-9.0); NEUT # 6.8 10*3/uL (2.3-7.9); NEUT % 74.6 % (47.0-73.0); PLATELET COUNT AUTOMATED 207 10*3/uL (130-400); RED CELL DISTRI WIDTH 14.9 % (0-14.5); WHITE BLOOD COUNT 9.1 10*3/uL (4.8-10.8)
[2017-11-04 06:54] LABS: ALBUMIN 3.1 gm/dl (3.1-4.5); ALKALINE PHOSPHATASE 67 U/L (45-117); BUN 14 mg/dl (7-24); CHLORIDE 100 mmol/L (98-107); CREATININE 0.87 mg/dL (0.55-1.02); POTASSIUM 3.8 mmol/L (3.5-5.1); SGOT/AST 19 IU/L (3-35); SGPT/ALT 12 U/L (12-78); SODIUM 142 mmol/L (136-145); TOTAL PROTEIN 6.7 gm/dL (6.4-8.2)
[2017-11-05] VITALS: BP 107/37
[2017-11-05 07:30] LABS: ABG BASE EXCESS 9.4 mmol/L (-2.0-2.0); ABG O2 SATURATION 97.1 % (95-97); ARTERIAL BLOOD GAS PCO2 54.2 mmHg (35-45); ARTERIAL BLOOD GAS PH 7.423 (7.35-7.45); ARTERIAL BLOOD GAS PO2 89.8 mmHg (80-90)
[2017-11-05 08:00] VITALS: BP 144/50
[2017-11-05 12:00] VITALS: BP 132/35
[2017-11-05 12:06] LABS: ACID FAST SPEC PROCESSING Concentration (.)
[2017-11-05 16:00] VITALS: BP 105/36
[2017-11-05 20:00] VITALS: BP 158/64
[2017-11-06] VITALS: BP 107/41
[2017-11-06 08:00] VITALS: BP 115/64
[2017-11-06 12:00] VITALS: BP 109/46
[2017-11-06 16:00] VITALS: BP 108/46
[2017-11-06 20:00] VITALS: BP 95/75
[2017-11-07] VITALS: BP 110/50
[2017-11-07 08:00] VITALS: BP 128/41
[2017-11-07 12:00] VITALS: BP 111/59
[2017-11-07 16:00] VITALS: BP 125/38
[2017-11-07 20:00] VITALS: BP 133/52
[2017-11-08] VITALS: BP 116/50
[2017-11-08 08:00] VITALS: BP 119/55
[2017-11-08 12:00] VITALS: BP 100/51
[2017-11-08 16:00] VITALS: BP 126/53
[2017-11-08 20:00] VITALS: BP 120/54
[2017-11-09] VITALS: BP 114/50
[2017-11-09 08:00] VITALS: BP 126/64
[2017-11-09 12:00] VITALS: BP 116/49
[2017-11-09 16:00] VITALS: BP 108/44
[2017-11-09 20:00] VITALS: BP 81/38
[2017-11-10] VITALS: BP 127/84
[2017-11-10 08:00] VITALS: BP 105/42
[2017-11-10 12:00] VITALS: BP 97/51
[2017-11-10 16:00] VITALS: BP 106/49
[2017-11-10 20:00] VITALS: BP 105/49
[2017-11-11] VITALS: BP 108/36
[2017-11-11 08:00] VITALS: BP 124/50
[2017-11-11 12:00] VITALS: BP 85/42
[2017-11-11] MEDS ORDERED: Vitamin D PO (14:09)
[2017-11-11] MEDS ORDERED: FUROSEMIDE40 MG PO (14:09)
[2017-11-11 16:00] VITALS: BP 99/53
[2017-12-25 16:09] LABS: M AVIUM COMPLEX Negative (.); M GORDONAE Negative (.); M KANSASII Negative (.); M TUBERCULOSIS COMPLEX Negative (.)
[2017-12-31] MEDS ORDERED: MIRTAZAPINE15 M2 PO (07:24)
[2017-12-31] MEDS ORDERED: POTASSIUM CHLO20 ME3 PO (07:26)
[2017-12-31] MEDS ORDERED: VITAMIN D400 I1 PO (11:34)
[2018-01-02 07:26] LABS: ACID FAST CULTURE Positive (.)
[2018-01-05] MEDS ORDERED: CEFUROXIME AXE250 MG PO (08:51)
[2018-01-05] MEDS ORDERED: PREDNISONE5 MG PO (08:51)
== END 2017-11-11 15:14 | disposition other institution (70) | DRG 193 ==
LOC: ED 10:22 → EDHOLD 12:43 → 5E 12:43
PROVIDERS: Emergency Medicine; Family Medicine; Internal Medicine; Internal Medicine Critical Care Medicine; Internal Medicine Hospice and Palliative Medicine
PROC: 0W9B3ZZ Drainage of Left Pleural Cavity, Percutaneous Approach (ICD-10-PCS; principal; 2017-11-03)
PROC: 0BC58ZZ Extirpation of Matter from Right Middle Lobe Bronchus, Via Natural or Artificial Opening Endoscopic (ICD-10-PCS; 2017-11-04)
PROC: 0BC88ZZ Extirpation of Matter from Left Upper Lobe Bronchus, Via Natural or Artificial Opening Endoscopic (ICD-10-PCS; 2017-11-04)
PROC: 0BC78ZZ Extirpation of Matter from Left Main Bronchus, Via Natural or Artificial Opening Endoscopic (ICD-10-PCS; 2017-11-04)
PROC: 0BC18ZZ Extirpation of Matter from Trachea, Via Natural or Artificial Opening Endoscopic (ICD-10-PCS; 2017-11-04)
PROC: 0BC98ZZ Extirpation of Matter from Lingula Bronchus, Via Natural or Artificial Opening Endoscopic (ICD-10-PCS; 2017-11-04)
PROC: 0BC48ZZ Extirpation of Matter from Right Upper Lobe Bronchus, Via Natural or Artificial Opening Endoscopic (ICD-10-PCS; 2017-11-04)
PROC: 0BC38ZZ Extirpation of Matter from Right Main Bronchus, Via Natural or Artificial Opening Endoscopic (ICD-10-PCS; 2017-11-04)
PROC: 0BC68ZZ Extirpation of Matter from Right Lower Lobe Bronchus, Via Natural or Artificial Opening Endoscopic (ICD-10-PCS; 2017-11-04)
PROC: 0BCB8ZZ Extirpation of Matter from Left Lower Lobe Bronchus, Via Natural or Artificial Opening Endoscopic (ICD-10-PCS; 2017-11-04)
DX: J18.9 Pneumonia, unspecified organism (principal); J96.90 Respiratory failure, unspecified, unspecified whether with hypoxia or hypercapnia; E43 Unspecified severe protein-calorie malnutrition; G93.41 Metabolic encephalopathy; T17.590A Other foreign object in bronchus causing asphyxiation, initial encounter; T17.490A Other foreign object in trachea causing asphyxiation, initial encounter; J90 Pleural effusion, not elsewhere classified; D68.59 Other primary thrombophilia; G62.9 Polyneuropathy, unspecified; I50.42 Chronic combined systolic (congestive) and diastolic (congestive) heart failure; F02.81 Dementia in other diseases classified elsewhere, unspecified severity, with behavioral disturbance; N39.0 Urinary tract infection, site not specified; I11.0 Hypertensive heart disease with heart failure; D53.9 Nutritional anemia, unspecified; G30.9 Alzheimer's disease, unspecified; Z66 Do not resuscitate; Z51.5 Encounter for palliative care; F32.9 Major depressive disorder, single episode, unspecified; K21.9 Gastro-esophageal reflux disease without esophagitis; E78.00 Pure hypercholesterolemia, unspecified; E03.9 Hypothyroidism, unspecified; G25.81 Restless legs syndrome; E87.6 Hypokalemia; R73.9 Hyperglycemia, unspecified; M1A.09X0 Idiopathic chronic gout, multiple sites, without tophus (tophi); Z79.899 Other long term (current) drug therapy; Z95.810 Presence of automatic (implantable) cardiac defibrillator; X58.XXXA Exposure to other specified factors, initial encounter; Y93.89 Activity, other specified; Y92.89 Other specified places as the place of occurrence of the external cause; Y99.8 Other external cause status; Z68.23 Body mass index [BMI] 23.0-23.9, adult

== ENCOUNTER 2019-04-02 22:05 | Emergency (ER) | payer MEDICARE ==
--- NOTE | ~2019-04-02 | EKG ---
[place], [place] ELECTROCARDIOGRAM REPORT NAME: ALESIA ZAMORA UNIT #: [id number] ROOM: DOCTOR: EPIPHANY DRAFT REPORT BIRTHDATE: [birth year] [facility] Test Date: 2019-04-02 Test Time: 22:59:13 Pat Name: ALESIA ZAMORA Department: Room: Gender: F [employer]: : 1935 Requested By: KRISTIN GREENFIELD Order Number: [id number] Reading MD: Becca De Guzman Measurements Intervals [place] Rate: 70 P: DE: QRS: 98 QRSD: 144 T: -25 QT: 470 QTc: 508 Interpretive Statements Afib/flutter and ventricular-paced rhythm Compared to ECG 12/31/2017 07:23:45 No significant changes Electronically Signed On 04-03-2019 11:34:27 PST by Becca De Guzman CM:EKGRPT:ELECTROCARDIOGRAM REPORT 1134 KRISTIN GREENFIELD MD EPIPHANY DRAFT REPORT KRISTIN GREENFIELD MD
[~2019-04-02 22:05] MED LIST changes: +AUGMENTIN 875-875 MG PO; +CEFUROXIME AXE250 MG PO; +DUONEB 3 MG/3 ML3 M1 INH; +FUROSEMIDE40 MG PO; +MIRTAZAPINE15 M2 PO; +POTASSIUM CHLO20 ME3 PO; +PREDNISONE5 MG PO; +SENNA8.6 MG PO; +VITAMIN D400 I1 PO; +Vitamin D PO
[2019-04-02 23:06] LABS: BASO # 0.1 10*3/uL (0.0-0.1); BASO % 0.7 % (0.0-1.0); EOS # 0.2 10*3/uL (0.0-0.4); EOS % 1.6 % (1.0-4.0); HEMOGLOBIN 10.4 g/dl (12.0-16.0); LYMPH # 2.1 10*3/uL (1.3-4.4); LYMPH % 17.9 % (27.0-41.0); MEAN CORPUSCULAR HGB 27.2 pg (27.0-31.0); MEAN CORPUSCULAR HGB CONC 28.9 g/dl (33.0-37.0); MEAN PLATELET VOLUME 11.7 fl (9.6-12.3); MONO # 0.7 10*3/uL (0.1-1.0); MONO % 6.1 % (3.0-9.0); NEUT # 8.5 10*3/uL (2.3-7.9); NEUT % 73.2 % (47.0-73.0); PLATELET COUNT AUTOMATED 242 10*3/uL (130-400); RED BLOOD COUNT 3.83 10*6/uL (4.10-5.10); RED CELL DISTRI WIDTH 14.4 % (0-14.5); WHITE BLOOD COUNT 11.6 10*3/uL (4.8-10.8)
[2019-04-02 23:17] LABS: ACT PARTIAL THROMBO TIME 29.9 SECONDS (20.0-32.1); INTERNATIONAL NORM RATIO 1.1 (2.0-3.5)
[2019-04-02 23:24] LABS: ALBUMIN 3.2 gm/dl (3.1-4.5); ALKALINE PHOSPHATASE 92 U/L (45-117); BUN 21 mg/dl (7-24); CHLORIDE 106 mmol/L (98-107); CREATININE 1.12 mg/dL (0.55-1.02); LIPASE 174 U/L (73-393); POTASSIUM 4.5 mmol/L (3.5-5.1); SGOT/AST 31 IU/L (3-35); SGPT/ALT 15 U/L (12-78); SODIUM 143 mmol/L (136-145); TOTAL PROTEIN 7.3 gm/dL (6.4-8.2); TROPONIN I < 0.015 ng/ml (<0.045)
[2019-04-02 23:41] LABS: BILIRUBIN NEGATIVE (NEGATIVE); BLOOD TRACE-INTACT (NEGATIVE); CLARITY SL CLOUDY (CLEAR); COLOR YELLOW (YELLOW); GLUCOSE NEGATIVE (NEGATIVE); KETONE NEGATIVE (NEGATIVE); LEUKO ESTERASE 1+ (NEGATIVE); NITRITE NEGATIVE (NEGATIVE); PH 5.5 (5.0-9.0); SPECIFIC GRAVITY 1.025 (1.005-1.030); UROBILINOGEN 0.2 E.U./dl (0.2-1.0)
[2019-04-02 23:49] LABS: EPITHELIAL CELLS 35-40
[2019-04-02 23:50] LABS: BACTERIA 1+
[2019-04-03] MEDS ORDERED: MYCOLOG CREAM 115 GM T (01:30)
[2019-04-03] MEDS ORDERED: KEFLEX500 M1 PO (01:30)
== END 2019-04-03 01:42 ==
LOC: ED 22:05
PROVIDERS: Emergency Medicine Emergency Medical Services
DX: N39.0 Urinary tract infection, site not specified (principal); R11.10 Vomiting, unspecified; R25.1 Tremor, unspecified; J44.9 Chronic obstructive pulmonary disease, unspecified; F03.90 Unspecified dementia, unspecified severity, without behavioral disturbance, psychotic disturbance, mood disturbance, and anxiety; K21.9 Gastro-esophageal reflux disease without esophagitis; E03.9 Hypothyroidism, unspecified; M10.9 Gout, unspecified; I11.0 Hypertensive heart disease with heart failure; I50.42 Chronic combined systolic (congestive) and diastolic (congestive) heart failure; E78.00 Pure hypercholesterolemia, unspecified; E11.42 Type 2 diabetes mellitus with diabetic polyneuropathy; I25.2 Old myocardial infarction; I48.91 Unspecified atrial fibrillation; Z79.899 Other long term (current) drug therapy; Z86.718 Personal history of other venous thrombosis and embolism